=== PATIENT | male | born 1950 | race Caucasian/White ===

== ENCOUNTER 2016-06-15 00:29 | Emergency (ER) | payer MEDICARE, OTHER ==
[~2016-06-15] VITALS: Ht 182.9 cm; Wt 87.9 kg
--- NOTE | 2016-06-15 00:24 | ED.REPORT ---
HPI-Neurologic Deficit Date of Service Jun 15, 2016 ED Provider: The patient is a 65 year old male with history of rectal cancer (in remission), HTN, and DM who was brought to the ED via EMS after he was found vomiting with decreased LOC by his roommates (last known normal 0). EMS state that the patient complained of right sided weakness. The patient presents able to answer questions and follow commands but with slurred speech. The patient reports a headache but denies knowledge of what happened prior to his arrival at the hospital. Per roommate report the patient has active DVT. He takes daily Plavix. His code status is DNR/DNI. Nursing Notes Stated Complaint: CODE STROKE/R SIDED WEAKNESS Nursing Notes Reviewed: Yes Allergies: Coded Allergies: No Known Allergies (Unverified , 06/15/16) Scheduled Aspirin (Aspirin) 81 Mg Tablet 81 MG PO DAILY Atorvastatin Calcium (Atorvastatin Calcium) 40 Mg Tablet 40 MG PO HS Cephalexin (Cephalexin) 500 Mg Tablet 500 MG PO q8hrs Clopidogrel Bisulfate (Plavix) 75 Mg Tablet 75 MG PO DAILY Ferrous Sulfate (Ferrous Sulfate) 325 Mg Tablet 325 MG PO DAILY Gabapentin (Gabapentin) 300 Mg Capsule 300 MG PO TID Insulin Glargine,Hum.rec.anlog (Toujeo Solostar) 300 Unit/Ml (1.5 Ml) Insuln.pen 40 UNIT SQ QAM Lansoprazole DR (Prevacid) 30 Mg Capsule 15 MG PO DAILY Lisinopril (Lisinopril) 10 Mg Tablet 10 MG PO DAILY Metoprolol Tartrate (Metoprolol Tartrate) 25 Mg Tablet 12.5 MG PO BID Scheduled PRN Hydrocodone-Acetaminophen 5-325 mg (Hydrocodone-Acetaminophen 5-325 mg) 1 Each Tablet 1 TABLET PO Q6H PRN PRN For Pain Loperamide/Simethicone (Imodium Multi-Symptom Rel Cplt) 1 Each Tablet 1 EACH PO ASDIRECTED PRN PRN For Diarrhea or Loose Stool Sennosides (Senna Laxative) 25 Mg Tablet 25 MG PO ASDIRECTED PRN PRN For Constipation General Time Seen by Provider: 00:30 Chief Complaint Slurred speech, Other (Right sided weakness) Hx Obtained From: Patient, EMS Arrived By: Ambulance Sudden in Onset?: No (Unknown) Onset Occurred: Onset unknown Symptom Duration: Since onset Location: : Head Severity: Current: Mild Severity: Maximum: Mild Recent Healthcare: No recent hospitalization, Recent doctor visit Similar Sx Previous: No Risk Factors NIH Stroke Scale Level of Consciousness: Not alert, arousable (1) Ask Month & Age: Both questions right (0) Open/Close Eyes/Hand Pin Ball Machine Mechanic: Performs both tasks (0) Horizontal EO Movements: None (0) Visual Jamison: No visual loss (0) Facial Palsy: Minor paralysis (1) Right Arm Motor Drift (10s): Some effort v gravity (2) Left Arm Motor Drift (10s): Some effort v gravity (2) Right Leg Motor Drift (5s): Some effort v gravity (2) Left Leg Motor Drift (5s): Some effort v gravity (2) Limb Ataxia FNF/Heel-Parra: No ataxia (0) Sensation (Arms/Legs/Face): No sensory loss (0) Language Aphasia: No aphasia, normal (0) Dysarthria: Slurring intelligible (1) Extinction/Inattention: No exctinct/inattent (0) NIHSS Score: 10 Time NIHSS Performed: 00:47 Date NIHSS Performed: Jun 15, 2016 Past Medical History Past Medical History 1. 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 2. Diabetes mellitus type 2, which was apparently being managed with metformin in the past. 3. Chronic diabetic neuropathy. 4. Chronic dizziness and lightheadedness reportedly as residual from his stroke about six years ago. 5. Hiatal hernia. 6. GERD. Reports: Stroke Smoking History Never Smoker Social History Alcohol Use: "Social" Drug Use: Denies drug use Review of Systems Unable to Obtain ROS Patient condition Physical Exam Initial Vital Signs Vital Signs (First) Date Time Temp Pulse Resp B/P Pulse Ox O2 Delivery O2 Flow Rate FiO2 06/15/16 00:45 36.3 101 12 266/126 98 Room Air Initial VS: Reviewed ENT: Mucous membranes moist, Conjunctiva normal, No scleral icterus Neck: Supple, Non-tender, Full range of motion Back: No CVA tenderness Lymphatic: No lymphadenopathy Skin: Warm, Dry, No cyanosis Psychiatric: Mood/affect normal, Behavior normal, Normal thought content General/Constitutional: Awake, Alert GCS 14 Head / Eyes: Atraumatic, Normocephalic, PERRL Left-sided facial droop Respiratory / Chest: Atraumatic, Breath sounds NL, Breath sounds = bilat Cardiovascular: Heart rate NL, Regular rhythm, Heart sounds NL Neurologic: Oriented X4 Slurred speech GCS 14 Moves all four extremities, unable to move against gravity Left-sided facial droop Interpretation & Diagnostics Lab Results Interpretation Result Diagram: 06/15/162906/15/1629 Test 06/15/16 00:30 White Blood Count 20.1th/mm3 (3.8-10.1) Red Blood Count 4.70mil/mm3 (4.40-5.80) Hemoglobin 13.5g/dL (13.8-17.2) Hematocrit 38.7% (41.0-50.0) Mean Corpuscular Volume 82.3fL (81-100) Mean Corpuscular Hemoglobin 28.7pg (27.0-35.0) Mean Corpuscular Hemoglobin Concent 34.9% (32.0-37.0) Red Cell Distribution Width 13.1% (12.3-15.4) Platelet Count 362bil/L (150-400) Neutrophils (%) (Auto) 75.2% (40-74) Lymphocytes (%) (Auto) 13.6% (14-46) Monocytes (%) (Auto) 9.9% (4-12) Eosinophils (%) (Auto) 0.7% (0-5) Basophils (%) (Auto) 0.2% (0-3) Prothrombin Time 11.9sec (8.1-12.5) Prothromb Time International Ratio 1.11ratio Activated Partial Thromboplast Time 29.9sec (22.8-33.0) Sodium Level 135mEq/L (134-144) Potassium Level 3.6mEq/L (3.5-5.2) Chloride Level 93mEq/L (97-108) Carbon Dioxide Level 25mmol/L (18-29) Blood Urea Nitrogen 23mg/dL (8-27) Creatinine 1.03mg/dL (0.76-1.27) Estimat Glomerular Filtration Rate 77mL/min (>59) Glucose Level 234mg/dL (60-99) Calcium Level 9.2mg/dL (8.5-10.1) Total Bilirubin 0.7mg/dL (0.0-1.2) Aspartate Amino Transf (AST/SGOT) 20U/L (0-50) Alanine Aminotransferase (ALT/SGPT) 21U/L (0-44) Alkaline Phosphatase 125U/L (25-160) Troponin T 0.010ug/L (0.0-0.011) Total Protein 8.4g/dL (6.4-8.4) Albumin 4.3g/dL (3.4-5.0) ECG Interpretation ECG Interpretation: Normal sinus rhythm at rate 99 J point elevation v1 v2 unchanged from prior T wave inversion in AVR Time: 00:43 Interpreted by: ED physician CT Head Interpretation CONCLUSION: Large acute cerebellar hemorrhage on the right with parenchymal hematoma. Moderate underlying atrophy and periventricular white matter changes consistent with the patient's age. Study: Head CT no contrast Interpretation / Wet Read by: Interpret - Radiologist Re-Eval/Medical Decision Med Decision/Clinical Course 65-year-old male with past medical history of hypertension, diabetes, rectal cancer which is possibly in remission brought in by EMS for altered mental status. Patient was a stroke activation given his severe hypertension, facial drooping, slurred speech, and right-sided weakness. He was immediately sent to CT and found to have a large brain bleed. I immediately called [facility] for transfer. Dr. Echevarria, the stroke physician, has accepted the patient. I have also initiated nicardipene with goal systolic blood pressure less than 160. Patient is oriented 4 at this time, and is adamant that he does not want to be intubated. While he has a brain bleed, I do feel that he is of decision-making capacity at this time. I am respecting his wish not to be intubated. I feel that he is also protecting his airway at this time, and answering questions appropriately. Source of Hx: Old records Re-Evaluation/Progress : Time of Eval: 12:40 Re-Evaluation/Progress Note: The patient is awake and oriented x4. He has states twice in front of multiple ER staff that he does not wish to be intubated or ressucitated. Consultation : Call Returned at: 00:53 Note: Spoke with Dr. Echevarria, Stroke neurologist at [facility], who accepts the transfer. Counseled Regarding: Diagnosis, Need for transfer, Other (Imaging) Discharge & Departure Impression: Primary Impression: Intracranial hemorrhage Additional Impressions: Vomiting Vomiting type: unspecified Vomiting Intractability: intractable Nausea presence: with nausea Qualified Code: R11.2 - Nausea with vomiting, unspecified Decreased level of consciousness Disposition: Transfer, Acute Care Facility Transfer Requested at: 00:48 Receiving Hospital: [facility] Transfer Accepted: Yes Transfer Accepted at: 00:58 Transfer Reason: Higher level of care Spoke with: Attending physician (Neurology, Dr. Echevarria) Patient Status: Stable, Stable for transfer Patient Informed: Yes Discharge Condition All VS Reviewed: Yes Condition: Stable Referrals: Allen Weinstein MD (PCP) Crit Care Except Billable Proc Time Spent: 30-74 minutes Services Performed: Patient management by me, Time spent at bedside, Reviewing imaging, Discussing patient care, Documentation in record Scribe Attestation Portions of this note were transcribed by Jamison Gaston. I, Dr. Jensen, personally performed the history, physical exam, and medical decision-making; I reviewed and confirmed the accuracy of the information in the transcribed note. Signed by: Keyona Torrez, [Date] and [Time]. copies to: Allen Weinstein MD, Rebecca A MD Jun 15, 2016 00:24 JAMISON GASTON Jun 15, 2016 00:56
[~2016-06-15 00:29] MED LIST: ASPI-973 PO; ATOR40TA69 PO; CEPH500T PO; CLOP75TA3 PO; FERR-83 PO; GABA-502 PO; HYDR-4003 PO; INSU300I SQ; LANS30CA14 G-TUBE; LISI10TA PO; LOPE1TAB13 PO; METO25TA6 PO; Ondansetron 2 mg/mL 2 mL Inj ONE; SENN25TA8 PO
[2016-06-15 00:40] LABS: BASOPHILS % (AUTO) 0.2 % (0-3); EOSINOPHILS % (AUTO) 0.7 % (0-5); MONOCYTES % (AUTO) 9.9 % (4-12); Mean Corpuscular Hemoglobin 28.7 pg (27.0-35.0); Mean Corpuscular Volume 82.3 fL (81-100); NEUTROPHILS % (AUTO) 75.2 % (40-74); Platelet Count 362 bil/L (150-400)
[2016-06-15 00:45] VITALS: BP 266/126; PULSE 101; RESP 12; O2SAT 98
[2016-06-15] MEDS ORDERED: NiCARdipine Inj 25 MG in Dextrose 5% 240 ML IV SCH (00:50)
[2016-06-15] MEDS ORDERED: HYDROmorphone 1 mg/mL Inj IVPUSH ONE (00:50)
[2016-06-15 01:01] LABS: INR 1.11 ratio
[2016-06-15 01:08] LABS: TROPONIN T 0.01 ug/L (0.0-0.011)
[2016-06-15 01:54] VITALS: BP 193/94; PULSE 101; RESP 18; O2SAT 95
--- NOTE | 2016-06-15 09:44 | DRSVH ---
PROCEDURE: CT BRAIN (TPA) ([id number]) INDICATIONS: Stroke TECHNIQUE: Noncontrast 4.5 mm thick angled axial sections acquired from the foramen magnum to the vertex, with c oronal reformats. COMPARISON: [facility], CT, CT ANGIO BRAIN AND NECK, 07/12/2015, 16:28. FINDINGS: Image quality: Excellent. Brain: There is a 3.6 x 5.9 x 5.3 cm interparenchymal hematoma with an acute appearance in the right cerebellar hemisphere. There is sulcal effacement and associated mass effect on the posterior right a spect of the dar additionally, the brainstem is slightly displaced to the left secondary to leftward shift of the right cerebellar tonsil. A 3 mm in diameter hyperdense focus is present within the righ t insular cortex which is new when compared with the study dated 07/12/15 (series 2, image 14). No oth er findings to suggest acute intracranial hemorrhage. There is extensive volume loss and deep and per iventricular white matter changes likely associated with microvascular ischemia. There is no subfalci ne herniation or supratentorial midline shift. Skull and face: Calvarium and visualized facial bones appear intact, without suspicious lesions. Sinuses: Visualized sinuses and mastoids are clear. IMPRESSION: 1. Large, acute right cerebellar hemisphere intraparenchymal clot with associated mass effect includi ng early right tonsillar herniation, leftward shift of the midbrain, and mass effect on the posterior right aspect of the dar. This finding is concordant with the overnight interpretation. And was relayed to Dr. Jensen by the over night radiologist at 12:45 AM on 06/15/16. 2. Findings suspicious for punctate intraparenchymal hemorrhage in the right insular cortex. This finding was not described on the overnight interpretation. 3. Extensive findings likely associated with microvascular ischemia. This study fulfills neurological imaging criteria for inclusion or exclusion of acute stroke therapie s based on available published neurological guidelines. Dictated by: Lisa Melendez M.D. on 06/15/2016 at 9:36 Approved by: Lisa Melendez M.D. on 06/15/2016 at 9:43
== END 2016-06-15 01:55 | disposition short-term general hospital (02) ==
LOC: SED 00:29
DX: I62.9 Nontraumatic intracranial hemorrhage, unspecified (principal); R11.2 Nausea with vomiting, unspecified; R41.82 Altered mental status, unspecified; R53.1 Weakness; R40.2410 Glasgow coma scale score 13-15, unspecified time; I10 Essential (primary) hypertension; E11.40 Type 2 diabetes mellitus with diabetic neuropathy, unspecified; I69.398 Other sequelae of cerebral infarction; K21.9 Gastro-esophageal reflux disease without esophagitis; I82.409 Acute embolism and thrombosis of unspecified deep veins of unspecified lower extremity; Z85.040 Personal history of malignant carcinoid tumor of rectum; Z79.82 Long term (current) use of aspirin; Z79.4 Long term (current) use of insulin; Z79.02 Long term (current) use of antithrombotics/antiplatelets
CPT/HCPCS: 36415; 70450; 80053; 84484; 85025; 85610; 85730; 93005; 94799; 96374; 96375; 99291; J2405

== ENCOUNTER 2016-08-01 15:22 | Observation (INO) | payer MEDICARE, OTHER ==
[2016-08-01] VITALS (7 sets, daily range): BP systolic 114–149; BP diastolic 64–79; PULSE 84–96; RESP 14–23; O2SAT 95–100
[~2016-08-01] VITALS: Ht 182.9 cm; Wt 76.4 kg
[~2016-08-01 15:22] MED LIST changes: -Ondansetron 2 mg/mL 2 mL Inj ONE
[2016-08-01 15:53] LABS: BASOPHILS % (AUTO) 0.6 % (0-3); EOSINOPHILS % (AUTO) 2.9 % (0-5); MONOCYTES % (AUTO) 10.7 % (4-12); Mean Corpuscular Hemoglobin 28.2 pg (27.0-35.0); Mean Corpuscular Volume 84.9 fL (81-100); NEUTROPHILS % (AUTO) 62.2 % (40-74); Platelet Count 346 bil/L (150-400)
[2016-08-01 16:13] LABS: INR 1.18 ratio
[2016-08-01 16:18] LABS: APPEARANCE,URINE CLEAR (CLEAR,HAZY); COLOR,URINE YELLOW (YELLOW); OCCULT BLOOD,URINE LARGE (NEGATIVE)
--- NOTE | 2016-08-01 16:47 | ED.REPORT ---
HPI-GI Bleed Date of Service Aug 01, 2016 ED Provider: Avinash Mera MD A 65 year old male with history of rectal cancer (in remission), PVD, embolic stroke, hypertension, type II diabetes mellitus and neuropathy presents to the ED via EMS from [facility] ([facility]) complaining of bloody stool that first appeared this morning. Associated symptoms include hematuria and LLQ abdominal pain. Patient was seen in the ED on 06/15 for decreased LOC and head CT revealed an right cerebellar hemorrhage. He was sent to [facility] in stable condition. Once discharged form [facility], patient was sent to live at [facility] in [place]. He denies any current fever or vomiting. Last known rectal malignancy was 02/09/2016. Nursing Notes Stated Complaint: POSS GI BLEED Chief Complaint: General Complaint Nursing Notes Reviewed: Yes Allergies: Coded Allergies: No Known Allergies (Unverified , 08/01/16) Scheduled Amlodipine (Amlodipine) 10 Mg Tablet 10 MG G-TUBE DAILY Ammonium Lactate (Ammonium Lactate) 140 Gm Cream..g. 1 APPLIC EXT BID Ascorbate Calcium (Vitamin C) 500 Mg Tablet 500 MG PO DAILY Atorvastatin Calcium (Atorvastatin Calcium) 40 Mg Tablet 40 MG PO HS Carvedilol (Carvedilol) 25 Mg Tablet 25 MG G-TUBE BID Chlorthalidone (Chlorthalidone) 25 Mg Tablet 12.5 MG G-TUBE DAILY Clopidogrel Bisulfate (Plavix) 75 Mg Tablet 75 MG PO DAILY Doxazosin (Cardura) 4 Mg Tablet 4 MG G-TUBE HS Ferrous Sulfate (Ferrous Sulfate) 325 Mg Tablet 325 MG PO DAILY Gabapentin Oral Soln (Gabapentin Oral Soln) 250 Mg/5 Ml Solution 300 MG G-TUBE TID Insulin Glargine (Lantus U100 Insulin Vial) 100 Unit/Ml Vial 24 UNITS SUBQ HS Insulin Lispro (HumaLOG U100 Insulin Pen) 100 Unit/1 Ml Insuln.pen 9 UNIT SUBQ ACHS Blood Sugar Lispro Correction <151 0 units 151-175 1 unit 176-200 2 units 201-225 3 units 226-250 4 units 251-275 5 units 276-300 6 units 301-325 7 units 326-350 8 units 351-375 9 units 376-400 10 units >400 12 units Check blood sugars before meals and at bedtime. Use correction factor only before meals. Insulin Lispro (HumaLOG U100 Insulin Pen) 100 Unit/1 Ml Insuln.pen 0-6 UNIT SUBQ ACHS Blood Sugar Lispro Correction <151 0 units 151-175 1 unit 176-200 2 units 201-225 3 units 226-250 4 units 251-275 5 units 276-300 6 units 301-325 7 units 326-350 8 units 351-375 9 units 376-400 10 units >400 12 units Check blood sugars before meals and at bedtime. Use correction factor only before meals. Lactose-Free Food/Fiber (Jevity 1.5 Oscar Liquid) 1,000 Ml Liquid 80 ML PO DIRECTED Lansoprazole DR (Prevacid) 30 Mg Capsule 15 MG G-TUBE DAILY Lisinopril (Lisinopril) 20 Mg Tablet 20 MG G-TUBE BID Multivitamin with Minerals (Totalday Multiple) 1 Each Tablet.er 1 TAB G-TUBE DAILY Nystatin (Nystatin) 100,000 Unit/1 Ml Oral.susp 500,000 UNIT PO Q6H Sodium Chloride 0.9% (Sodium Chloride) 50 Ml Iv.soln 200 ML G-TUBE Q6H Tamsulosin (Flomax) 0.4 Mg Capsule 0.4 MG PO DAILY Water Bacteriostatic (Water) 30 Ml Vial 200 ML G-TUBE QID Scheduled PRN Acetaminophen (Acetaminophen) 325 Mg Tablet 650 MG G-TUBE Q6H PRN PRN For Pain Albuterol Neb Soln (Albuterol Neb Soln) 2.5 Mg/3 Ml Vial.neb 2.5 MG INHALATION Q2H PRN PRN For Shortness of Breath Bisacodyl (Dulcolax Rectal) 10 Mg Supp.rect 10 MG RC DAILY PRN PRN For Constipation Loperamide Liquid (Loperamide Liquid) 1 Mg/5 Ml Liquid 2 MG G-TUBE Q6H PRN PRN For Diarrhea or Loose Stool Magnesium Hydroxide (Milk of Magnesia) 400 Mg/5 Ml Oral.susp 30 ML PO DIRECTED PRN PRN For Constipation Meclizine (Bonine) 25 Mg Tab.chew 25 MG PO TID PRN PRN For Dizziness Na Phos,M-B/Na Phos,Di-Ba (Fleet Enema) 133 Ml Enema 133 ML RC DIRECTED PRN PRN For Constipation Ondansetron ODT (Ondansetron ODT) 4 Mg Tab.rapdis 4-8 MG G-TUBE TID PRN PRN For Nausea Oxycodone (Roxicodone) 5 Mg Tablet 5-10 MG G-TUBE Q3H PRN PRN For Pain Sennosides (Senna) 8.8 Mg/5 Ml Syrup 17.6 MG G-TUBE BID PRN PRN For Constipation General Time Seen by Provider: 16:42 Transferred From: long-term Chief Complaint Chief Complaint: Other (Blood in Stool ) Hx Obtained From: Patient Arrived By: Ambulance Onset Occurred: 1 - 4 hours ago Symptom Duration: Since onset Progression Since Onset: Unchanged Location: : LLQ Quality: Painful Radiation: : Does not radiate Severity: Current: Mild Severity: Maximum: Moderate Associated with: Reports: Abdominal pain, Hematuria, Denies: Fever Pertinent Negative: Pt denies other symptoms Recent Healthcare: Recent doctor visit, Recent hospitalization Past Medical History Past Medical History Notes: DNR - Limited intervention PCP: Dr. Lebron Weinstein Past Medical History 1. Intracranial right cerebral hemorrhage (06/16/2016) 2. History of embolic stroke (6 years ago) 3. Diabetes mellitus type 2, which was apparently being managed with metformin in the past. 4. Chronic diabetic neuropathy 5. Hypertension 6. TIA 7. Peripheral vascular disease 8. Chronic dizziness and lightheadedness reportedly as residual from his stroke about six years ago. 9. Hiatal hernia. 10. GERD. Reports: Stroke Past Surgical History G-tube placement Oro catheter Smoking History Never Smoker Social History Pt currently lives at [facility] in [place] Alcohol Use: "Social" Drug Use: Denies drug use Other Social History: Good social support, Lives in long term, Local resident Review of Systems No anticoagulation Constitutional: Denies: Chills, Fever GI: Reports: Abdominal pain (LLQ), Bloody/tarry stool, Hematochezia, Denies: Nausea, Vomiting Neurologic: Denies: Change LOC Complete sys rev & neg: except as marked. Male: Reports Hematuria Physical Exam Initial Vital Signs Vital Signs (First) Date Time Temp Pulse Resp B/P Pulse Ox O2 Delivery O2 Flow Rate FiO2 08/01/16 15:31 36.8 96 23 127/67 96 Room Air Initial VS: Reviewed Head / Eyes: Atraumatic, Normocephalic, PERRL Extremities: Vascular intact, Neuro intact, No swelling, No tenderness Skin: Warm, Dry, No cyanosis Psychiatric: Mood/affect normal, Behavior normal, Normal thought content General/Constitutional: Awake, Alert, No acute distress Respiratory / Chest: Atraumatic, No respiratory distress Abdomen: Atraumatic, Soft, No guarding, No rebound Tenderness/Guarding/Rebound: Positive: Tender LLQ... ABDOMEN: J-tube in place Rectum / Perineum: Atraumatic Rectal for Blood: Positive: Maroon stool (Small amt of clotted blood present ) RECTUM: Firm stool present (dark) Interpretation & Diagnostics Lab Results Interpretation Result Diagram: 08/01/16 1548 08/01/16 1548 Test 08/01/16 15:48 08/01/16 15:51 White Blood Count 8.4th/mm3 (3.8-10.1) Red Blood Count 3.58mil/mm3 (4.40-5.80) Hemoglobin 10.1g/dL (13.8-17.2) Hematocrit 30.4% (41.0-50.0) Mean Corpuscular Volume 84.9fL (81-100) Mean Corpuscular Hemoglobin 28.2pg (27.0-35.0) Mean Corpuscular Hemoglobin Concent 33.2% (32.0-37.0) Red Cell Distribution Width 14.9% (12.3-15.4) Platelet Count 346bil/L (150-400) Neutrophils (%) (Auto) 62.2% (40-74) Lymphocytes (%) (Auto) 20.9% (14-46) Monocytes (%) (Auto) 10.7% (4-12) Eosinophils (%) (Auto) 2.9% (0-5) Basophils (%) (Auto) 0.6% (0-3) Prothrombin Time 12.7sec (8.1-12.5) Prothromb Time International Ratio 1.18ratio Sodium Level 134mEq/L (134-144) Potassium Level 4.1mEq/L (3.5-5.2) Chloride Level 93mEq/L (97-108) Carbon Dioxide Level 26mmol/L (18-29) Blood Urea Nitrogen 35mg/dL (8-27) Creatinine 0.76mg/dL (0.76-1.27) Estimat Glomerular Filtration Rate 109mL/min (>59) Glucose Level 165mg/dL (60-99) Calcium Level 9.2mg/dL (8.5-10.1) Total Bilirubin 0.4mg/dL (0.0-1.2) Aspartate Amino Transf (AST/SGOT) 43U/L (0-50) Alanine Aminotransferase (ALT/SGPT) 81U/L (0-44) Alkaline Phosphatase 140U/L (25-160) Troponin T 0.042ug/L (0.0-0.011) Total Protein 6.8g/dL (6.4-8.4) Albumin 3.0g/dL (3.4-5.0) Urine Color Yellow (YELLOW) Urine Appearance Clear (CLEAR,HAZY) Urine pH 8.0 (5.0-8.0) Urine Specific [place]ham 1.010 (1.003-1.035) Urine Protein Tracemg/dL (NEG,TRACE) Urine Glucose (UA) 500mg/dL (NEGATIVE) Urine Ketones Negativemg/dL (NEGATIVE) Urine Occult Blood Large (NEGATIVE) Urine Nitrite Negative (NEGATIVE) Urine Bilirubin Negative (NEGATIVE) Urine Urobilinogen 4.0mg/dL (NORMAL) Urine Leukocyte Esterase Negative (NEGATIVE) Urine RBC 11-50/hpf (0-2) Urine WBC 0-5/hpf (0-5) Urine Epithelial Cells None/hpf (NONE-MOD) Urine Crystals None seen (NONE SEEN) Urine Bacteria None/hpf (NONE-FEW) Urine Hyaline Casts None/lpf (NONE) Urine Granular Casts None seen (NONE SEEN) Urine Waxy Casts None seen (NONE SEEN) Urine Red Blood Cell Casts None seen (NONE SEEN) Urine White Blood Cell Casts None seen (NONE SEEN) Urine Mucus None seen (None Seen) Urine Trichomonas None seen (NONE SEEN) Urine Yeast None (NONE SEEN) Urinalysis Comment None Urine Culture Reflexed Not indicated Lab Results Interpretation: LABS (06/15/16) Hgb = 13.5 Hct = 38.5 ECG Interpretation ECG Interpretation: Sinus Rhythm Rate 85 bpm Left ventricular hypertrophy [place] ST elevation, lateral leads Normal P axis Time: 16:58 Interpreted by: ED physician Normal ECG Interpretation: No change from prior ECGs (06/15/16) CT Abd / Pelvis Interpretation IMPRESSION: 1. New medial segment left hepatic lobe metastasis. 2. No change in calcified splenic hilar focus, possibly indicating a healed metastasis versus splenic artery aneurysm. 3. No change in mild right lung base pneumonia. Dictated by: Stew Adrian M.D. on 08/01/2016 at 17:24 Study type: Abdominal CT IV contrast Interpretation / Wet Read by: Interpret - Radiologist Re-Eval/Medical Decision Med Decision/Clinical Course Lower GI bleeding with reassuring VS. Does not appear to have ongoing significant blood loss. Unexpected elevation of troponin, this is a change from a recent baseline. Also significant decrease in hemoblobin since Jun. Plan to admit to trend these. Given co-morbidities, do not think he is a candidate for a cardiac intervention. Re-Evaluation/Progress : Time of Eval: 18:12 Patient Status: Condition improved Re-Evaluation/Progress Note: Patient is rechecked. He is informed of his concerning lab results and the plan to admit. Code status is discussed. Patient would still like to be DNR with limited intervention. Consultation : Referral / Consult Name: Catalino Gasca MD Consulted With: Hospitalist Call Returned at: 18:25 Digital Media Representative: Will see patient, Agrees with eval, Agrees with plan, Accepts admit Counseled Regarding: Diagnosis, Lab results, Need for admission Discharge & Departure Impression: Primary Impression: Lower GI bleed Additional Impression: Elevated troponin Disposition: ADMITTED TO HOSPITAL Discharge Condition All VS Reviewed: Yes Condition: Stable Referrals: Allen Weinstein MD (PCP) Elsa Easley MD Attestation Portions of this note were transcribed by Keith Sanchez. I, Dr. Mera personally performed the history, physical exam and medical decision-making; I reviewed and confirmed the accuracy of the information in the transcribed note. Signed by: Keyona Santoro, 08/01/16 4207. copies to: Allen Weinstein MD; Elsa Easley MD, Donald L MD Aug 01, 2016 16:47 KEITH SANCHEZ Aug 01, 2016 16:54
--- NOTE | 2016-08-01 17:28 | DRSVH ---
PROCEDURE: CT ABDOMEN AND PELVIS WITH CONTRAST ([id number]) INDICATIONS: llq abd pain/tender, rectal bleeding, history of colon carcinoma TECHNIQUE: After the administration of intravenous contrast, 5 mm thick sections acquired from the diaphragm to the symphysis. 5 mm coronal and sagittal reformats were acquired. For radiation dose reduction, the following was used: automated exposure control, adjustment of mA and/or kV according to patient siz e. COMPARISON: [facility], CT, CT CHEST ABD PELVIS W CON, 08/30/2015, 10:46. [facility], CT, CT ABD PELVIS W CON, 04/26/2015, 16:59. [facility], CT, CT ABDOMEN PELVIS WO CONTRAST, 07/26/2016, 6:52 PM. FINDINGS: Image quality: Excellent. ABDOMEN: Lung bases: No change in mild airspace opacity within the right posterior lung base. Heart size is no rmal. Solid organs: Liver and spleen are normal in size. There is a 26 mm diameter low-density focus withi n the medial segment left hepatic lobe inferiorly, new since the prior examination. There is a 13 mm diameter calcified focus at the splenic hilum, as before. Gallbladder is within normal limits. Bilia ry system is non dilated. Pancreas enhances normally. No adrenal nodules. Kidneys demonstrate norm al size and enhancement, without hydronephrosis. Peritoneum and bowel: Percutaneous gastrostomy is present. Bowel loops demonstrate normal wall thick ness and caliber. No free fluid or air. Nodes and vessels: No retroperitoneal or mesenteric adenopathy by size criteria. Aorta and inferior vena cava are normal in size. Miscellaneous: No ventral hernias. PELVIS: Genitourinary: Oro catheter is present, and the urinary bladder is decompressed. Miscellaneous: No inguinal hernias or adenopathy. Bones: No suspicious bony lesions. No vertebral body compression fractures. IMPRESSION: 1. New medial segment left hepatic lobe metastasis. 2. No change in calcified splenic hilar focus, possibly indicating a healed metastasis versus splenic artery aneurysm. 3. No change in mild right lung base pneumonia. Dictated by: Stew Adrian M.D. on 08/01/2016 at 17:24 Approved by: Stew Adrian M.D. on 08/01/2016 at 17:26
[2016-08-01] MEDS ORDERED: Polyethylene Glycol (PEG) 17 Gm Powder PO PRN (18:30)
[2016-08-01] MEDS ORDERED: Alum-Mag Hydrox-Simeth 30 mL Suspension PO PRN (18:30)
[2016-08-01] MEDS ORDERED: Ondansetron 2 mg/mL 2 mL Inj IVPUSH PRN (18:30)
[2016-08-01] MEDS ORDERED: GABA250S2 G-TUBE (19:13)
[2016-08-01] MEDS ORDERED: INSU100V7 SUBQ (19:13)
[2016-08-01] MEDS ORDERED: OXYC-474 G-TUBE (19:13)
[2016-08-01] MEDS ORDERED: ACET325T51 G-TUBE (19:17)
[2016-08-01] MEDS ORDERED: SENN8.8S8 G-TUBE (19:17)
[2016-08-01] MEDS ORDERED: HYG25 G-TUBE (19:17)
[2016-08-01] MEDS ORDERED: AMLO10TA3 G-TUBE (19:17)
[2016-08-01] MEDS ORDERED: ALBU2.5V4 INHALATION (19:17)
[2016-08-01] MEDS ORDERED: LISI-567 G-TUBE (19:17)
[2016-08-01] MEDS ORDERED: [UNRECOGNIZED DRUG - CODE] G-TUBE (19:18)
[2016-08-01] MEDS ORDERED: DOXA4TAB2 G-TUBE (19:18)
[2016-08-01] MEDS ORDERED: NYST1000 PO (19:23)
[2016-08-01] MEDS ORDERED: INSU100I18 SUBQ ×2 (19:23→19:29)
[2016-08-01] MEDS ORDERED: ONDA4TAB12 G-TUBE (19:23)
[2016-08-01] MEDS ORDERED: LOPE1LIQ80 G-TUBE (19:23)
[2016-08-01] MEDS ORDERED: CARV25TA2 G-TUBE (19:23)
[2016-08-01] MEDS ORDERED: BISA10SU61 RC (19:29)
[2016-08-01] MEDS ORDERED: MAGN400O4 PO (19:29)
[2016-08-01] MEDS ORDERED: AMMO385C5 EXT (19:29)
[2016-08-01] MEDS ORDERED: NA P133E23 RC (19:29)
[2016-08-01] MEDS ORDERED: MECL-114 PO (19:35)
[2016-08-01] MEDS ORDERED: LACT-75 PO (19:35)
[2016-08-01] MEDS ORDERED: [UNRECOGNIZED DRUG - CODE] G-TUBE (19:35)
[2016-08-01] MEDS ORDERED: MULT-620 G-TUBE (19:35)
[2016-08-01] MEDS ORDERED: TAMS0.4C98 PO (19:35)
[2016-08-01] MEDS ORDERED: ASCO-294 PO (19:35)
[2016-08-01] MEDS: 0.9% Sodium Chloride 1,000 ML IV SCH (20:22)
[2016-08-01] MEDS ORDERED: Pantoprazole 40 mg ER24 Tablet PO SCH (20:30)
--- NOTE | 2016-08-01 21:52 | PCM.HPMED ---
Subjective Date of Service Aug 01, 2016 Primary Provider: Admitting Physician: Primary Care Physician: Allen Weinstein MD Attending Physician: Admit Status: From the Emergency Department, 23-Hour Observation, Remote Telemetry Chief Complaint: Hematochezia History of Present Illness: Javier Joseph is a 65 year old male with history of rectal cancer (in remission), Atherosclerosis disease with Peripheral vascular disease and TIA, type II diabetes mellitus and hypertension presents to [facility] emergency department via EMS from [facility] ([facility]) complaining of Blood in his stool 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 Associated symptoms include hematuria and left sided abdominal pain. He denies any vomiting or fever. Due to patient being a poor historian it is unclear if he had any melena or hematemesis. Unclear if patient took any NSAID Patient was seen at [facility] on 06/15 for decreased LOC and CT revealed an intracranial hemorrhage. He was sent to [facility] in stable condition. Patient was sent to live at [facility] in [place] after being discharged from [facility]. History of rectal cancer with metastasis Case discussed with Dr Mera, no active signs of bleeding with stable Hgb. Elevated troponin, no EKG changes or chest pain. Request to admit to trend troponin and monitor for possible GI bleeding Review of Systems: Poor historian, answering no to every question Allergies Coded Allergies: No Known Allergies (Unverified , 08/01/16) Home Medications From Javier Mancia [id number] 05/29/2016 09:20 AM 05/09 aspirin 81 mg tablet,delayed release take 1 tablet by oral route every day atorvastatin 40 mg tablet TAKE 1 TABLET BY ORAL ROUTE EVERY DAY gabapentin 300 mg capsule take 1 capsule by oral route 3 times every day hydrocodone 5 mg-acetaminophen 325 mg tablet take 1 tablet by oral route every 6 hours as needed for pain 06/03/2016 Iron (ferrous sulfate) 325 mg (65 mg iron) tablet take 1 capsule po daily lancets Use for blood glucose readings daily lisinopril 10 mg tablet take 1 tablet by oral route every day metoprolol tartrate 25 mg tablet take 1/2 tablet by oral route 2 times every day for high blood pressure. 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 Surgical History s/p Craniotomy Family History Mother, at 84yo from COPD Father, alive and well at 89yo Social History Hx Alcohol Use: Yes (A COUPLE BEER A WEEK) Hx Substance Use: No Hx Tobacco Use: No Smoking Status: Never Smoker Living Arrangement: Senior Living Facility ([facility]) Exam Vital Signs Vital Sign - Last Date Time Temp Pulse Resp B/P Pulse Ox O2 Delivery O2 Flow Rate FiO2 08/01/16 18:16 86 14 132/69 100 Room Air 08/01/16 15:31 36.8 Exam General: Alert, Oriented X3, Cooperative, No acute Distress Eyes: PERRLA, Scleral Anicteric Mouth: Mouth Normal, Mucous Membranes Moist/[place] Neck: Supple, no Thyromegaly, trachea central. Chest & Lungs: Clear to auscultation & percussion, No adventitious breath sounds, no crackles, no wheeze Cardiovascular: Normal S1, Normal S2, No Murmurs/Rubs/Gallops, Regular Rate/ Rhythm, (No JVD, no peripheral edema) Pulses: Radial (present and equal), Dorsalis Pedi (present and equal) Abdomen: Soft, Non-tender, Non-distended, Normoactive bowel tones. Musculoskeletal: Unremarkable. Normal range of motion, no swollen or erythematous joints Extremities: No edema, no cyanosis, no clubbing. Skin: No rashes. Warm and dry, no erythematous areas Neurological: Grossly neurologically intact, has generalized weakness, Normal Speech, Sensation Intact Lymphatic: Lymph nodes Cervical and Axillary not palpable. Lab and Diagnostics Labs Laboratory Tests Test 08/01/16 15:48 08/01/16 15:51 White Blood Count 8.4th/mm3 (3.8-10.1) Red Blood Count 3.58mil/mm3 (4.40-5.80) Hemoglobin 10.1g/dL (13.8-17.2) Hematocrit 30.4% (41.0-50.0) Mean Corpuscular Volume 84.9fL (81-100) Mean Corpuscular Hemoglobin 28.2pg (27.0-35.0) Mean Corpuscular Hemoglobin Concent 33.2% (32.0-37.0) Red Cell Distribution Width 14.9% (12.3-15.4) Platelet Count 346bil/L (150-400) Neutrophils (%) (Auto) 62.2% (40-74) Lymphocytes (%) (Auto) 20.9% (14-46) Monocytes (%) (Auto) 10.7% (4-12) Eosinophils (%) (Auto) 2.9% (0-5) Basophils (%) (Auto) 0.6% (0-3) Prothrombin Time 12.7sec (8.1-12.5) Prothromb Time International Ratio 1.18ratio Sodium Level 134mEq/L (134-144) Potassium Level 4.1mEq/L (3.5-5.2) Chloride Level 93mEq/L (97-108) Carbon Dioxide Level 26mmol/L (18-29) Blood Urea Nitrogen 35mg/dL (8-27) Creatinine 0.76mg/dL (0.76-1.27) Estimat Glomerular Filtration Rate 109mL/min (>59) Glucose Level 165mg/dL (60-99) Calcium Level 9.2mg/dL (8.5-10.1) Total Bilirubin 0.4mg/dL (0.0-1.2) Aspartate Amino Transf (AST/SGOT) 43U/L (0-50) Alanine Aminotransferase (ALT/SGPT) 81U/L (0-44) Alkaline Phosphatase 140U/L (25-160) Troponin T 0.042ug/L (0.0-0.011) Total Protein 6.8g/dL (6.4-8.4) Albumin 3.0g/dL (3.4-5.0) Urine Color Yellow (YELLOW) Urine Appearance Clear (CLEAR,HAZY) Urine pH 8.0 (5.0-8.0) Urine Specific [place] 1.010 (1.003-1.035) Urine Protein Tracemg/dL (NEG,TRACE) Urine Glucose (UA) 500mg/dL (NEGATIVE) Urine Ketones Negativemg/dL (NEGATIVE) Urine Occult Blood Large (NEGATIVE) Urine Nitrite Negative (NEGATIVE) Urine Bilirubin Negative (NEGATIVE) Urine Urobilinogen 4.0mg/dL (NORMAL) Urine Leukocyte Esterase Negative (NEGATIVE) Urine RBC 11-50/hpf (0-2) Urine WBC 0-5/hpf (0-5) Urine Epithelial Cells None/hpf (NONE-MOD) Urine Crystals None seen (NONE SEEN) Urine Bacteria None/hpf (NONE-FEW) Urine Hyaline Casts None/lpf (NONE) Urine Granular Casts None seen (NONE SEEN) Urine Waxy Casts None seen (NONE SEEN) Urine Red Blood Cell Casts None seen (NONE SEEN) Urine White Blood Cell Casts None seen (NONE SEEN) Urine Mucus None seen (None Seen) Urine Trichomonas None seen (NONE SEEN) Urine Yeast None (NONE SEEN) Urinalysis Comment None Urine Culture Reflexed Not indicated Result Diagram: 08/01/16 1548 08/01/16 1548 X-Rays, CTs and MRIs CT ABDOMEN AND PELVIS WITH CONTRAST 08/01 IMPRESSION: 1. New medial segment left hepatic lobe metastasis. 2. No change in calcified splenic hilar focus, possibly indicating a healed metastasis versus splenic artery aneurysm. 3. No change in mild right lung base pneumonia. Dictated by: Stew Adrian M.D. on 08/01/2016 at 17:24 Approved by: Stew Adrian M.D. on 08/01/2016 at 17:26 Assessment & Plan Javier Joseph is a 65 year old male with history of rectal cancer (in remission), Atherosclerosis disease with Peripheral vascular disease and TIA, type II diabetes mellitus and hypertension presents to [facility] emergency department via EMS from [facility] ([facility]) complaining of hematochezia 1. Acute Elevated troponin. Present on admission No EKG changes or anginal complaints at this time. Likely represent demand ischemia rather than Non ST elevation [place] - trending troponin overnight - consider a Cardiology consult tomorrow if levels continue to rise - No anticoagulations at this time due to suspected bleeding 2. Possible GI bleeding. Present on admission No obvious active bleeding at this time, Previous history if GERD. Etiology could be Wendy Ospina syndrome or Peptic ulcer disease - Protonix 40 mg daily - given Stroke risk and Myocardial infarction risk I will continue antiplatelet therapy for now - consider Gastroenterology consult if bleeding persists - recommend endoscopy as outpatient 3 Hypertension Presumed stable - continuing Metoprolol and Lisinopril via G tube 4 Type 2 diabetes - Continue home dose Lantus (dose unclear) - Low dose correctional insulin Lispro 5 Rectal cancer with metastasis Imaging showed no change in splenic and hepatic metastasis -Followed by Dr. Esteban outpatient 6 Chronic indwelling catheter with hematuria No evidence of urinary tract infection - continue catheter care with frequent changes 7 Malnutrition on tube feeding - holding tube feeding until bleeding is ruled out 8 Multiple Skin Ulcers. Present on admission Patient bed bound - wound care consulted - Acetaminophen as needed for mild pain/fever/headache - Bowel regimen as needed - Antiemetic as needed Patient admitted under inpatient status with expected length of stay > 2 midnights for severity of present symptoms, complexities of treatment plan and risk for adverse event . Resuscitation Status: DNR/DNI:Do Not Resuscitate/Intubate Catalino Gasca MD Aug 01, 2016 18:33
[2016-08-01] MEDS: Pantoprazole 4 mg/mL 10 mL Inj IVPUSH SCH (22:00)
[2016-08-02] VITALS (8 sets, daily range): BP systolic 133–159; BP diastolic 78–89; PULSE 67–97; RESP 18–20; O2SAT 95–97
[2016-08-02] MEDS: 0.9% Sodium Chloride 1,000 ML IV SCH ×2 (04:40→14:59)
[2016-08-02] MEDS: Nystatin 100,000 Unit/mL 5 mL Suspension PO SCH ×4 (05:10→23:10)
[2016-08-02] MEDS ORDERED: Loperamide 1 mg/5 mL 120 mL Liquid G-TUBE PRN (05:10)
[2016-08-02] MEDS ORDERED: SODIUM CHLORIDE IV SCH (05:10)
[2016-08-02] MEDS ORDERED: Albuterol 2.5 mg/3 mL Inhalation Solution NEB PRN (05:18)
[2016-08-02] MEDS ORDERED: WATER FOR INJECTION INJ SCH (06:30)
[2016-08-02] MEDS ORDERED: Acetaminophen 32.5 mg/mL 20 mL Liquid PO PRN (08:16)
[2016-08-02] MEDS ORDERED: Lansoprazole 30 mg ODTablet G-TUBE SCH (08:30)
[2016-08-02 08:46] LABS: BASOPHILS % (AUTO) 0.6 % (0-3); EOSINOPHILS % (AUTO) 1.9 % (0-5); MONOCYTES % (AUTO) 7.9 % (4-12); Mean Corpuscular Hemoglobin 28.5 pg (27.0-35.0); NEUTROPHILS % (AUTO) 69.3 % (40-74); Platelet Count 313 bil/L (150-400)
[2016-08-02] MEDS: Pantoprazole 4 mg/mL 10 mL Inj IVPUSH SCH ×2 (09:25→16:59)
[2016-08-02 09:30] LABS: TROPONIN T 0.039 ug/L (0.0-0.011)
--- NOTE | 2016-08-02 11:55 | DRSVH ---
Located Within [facility] [address] [address] Echocardiogram Report Name: GRACIELA CERVANTES WStudy Date: Height: 72 in Hospital Exam Location: [facility] Weight: 168 lb Gender: Male BSA: 2.0 m2 : 1950 Age: 65 yrs BP: 154/89 mmHg Reason For Study: ELEVATED TROPONIN Ordering Physician: HOSPITALIST SVerformed By: Laila Goldberg Referring Physician: DR. Zachary CARDENAS Interpretation Summary Left ventricular wall thickness is moderately increased. The ejection fraction is estimated to be 60-65%. Left ventricular wall motion is normal. Compared to the prior exam, left ventricular function is significantly improved. The right ventricle grossly appears normal in size with probable normal systolic function. There is no significant valvular heart disease. Left Ventricle: The left ventricular cavity is small. Left ventricular wall thickness is moderately increased. The ejection fraction is estimated to be 60-65%. Compared to the prior exam, left ventricular function is significantly improved. Left ventricular wall motion is normal. Spectral Doppler of the mitral valve is reversed, with an E/A wave ratio < 1.0. Right Ventricle: The right ventricle grossly appears normal in size with probable normal systolic function. Atria: Both atria are normal in size. There is no Doppler evidence for an atrial septal defect. Mitral Valve: The mitral valve leaflets appear normal. There is no evidence of stenosis, fluttering, or prolapse. There is no mitral regurgitation noted. Aortic Valve: The aortic valve is trileaflet. The aortic valve opens well. The aortic valve is slightly calcified. No aortic regurgitation is present. Tricuspid Valve: The tricuspid valve leaflets are thin and pliable. There is a trace or physiologic amount of tricuspid regurgitation. Pulmonary artery pressures cannot be estimated because of the lack of a measurable TR jet velocity. Pulmonic Valve: The pulmonic valve is not well seen, but is grossly normal. There is no pulmonic valvular regurgitation. Great Vessels: The aortic root is normal size. The dimensions of the ascending aorta are normal. The pulmonary artery is normal size. The IVC is of normal diameter and collapses greater than 50% with a sniff. This suggests a low right atrial pressure of 3 mm Hg. Pericardium/ Pleura There is no pericardial effusion. There is no pleural effusion. MMode/2D Measurements & Calculations LVIDd: 3.7 cm LA dimension: 3.4 cm RA long axis LVOT diam: 2.5 cm LVIDs: 2.3 cm AoV Opening FS: 38.6 % LA A2 area: 16.5 cm RA area EPSS: 0.54 cm LA A4 area: 22.6 cm Ao root diam IVSd: 1.4 cm LA length (vol) : 10.7 cm LVPWd: 1.5 cm RA vol Aortic Jxn: 3.0 cm LA vol: 50.1 ml : 18.6 ml asc Aorta Diam LA vol index RA : 9.4 mm/ Ao Arch Diam (Prox RVDd major Trans): 2.8 cm IVC diam: 1.7 cm : 6.7 cm LV ponce. diameter/BSA LV sys. diameter/BSA RVD2 (mid) (cm/m^2): 1.9 (cm/m^2): 1.2 : 2.3 cm Doppler Measurements & Calculations Ao V2 max MV E max mitul MV E/A: 0.54 PA V2 max: 81.3 cm/sec : 114.5 cm/sec : 53.0 cm/sec Med Peak E' Mitul PA mean P.5 mmHg Ao max PG MV A max mitul PA Accel Time : 5.2 mmHg : 98.0 cm/sec E/E' med: 11.1 : 0.14 sec Ao mean PG Lat Peak E' Mitul LVOT Max Mitul E/E' lat: 5.9 : 88.3 cm/sec E/e' average: 8.5 DAMION(I,D): 3.1 cm Pulm A Revs Dur sev ratio Ao V2 mean LV V1 max PG PA V2 mean DAMION indexed to BSA : 86.2 cm/sec : 58.1 cm/sec (cm^2/m^2): 1.6 Ao V2 VTI: 23.6 cmLV V1 VTI : 15.3 cm DAMION(V,D): 3.7 cm2 Electronically signed by: Lyndon Ortiz on Reading Physician:08/02/2016 11:54 AM
--- NOTE | 2016-08-02 14:16 | PCM.DIMED ---
Trinity Hayes DO 08/02/16 1414: Discharge Instructions Date of Service August 03, 2016 Dates of Hospitalization Aug 01, 2016 at 18:43 Discharge Diagnosis Discharge Diagnosis 1. Acute Elevated troponin 2. Possible GI bleeding 3. Hypertension 4. Type 2 diabetes 5. Rectal cancer with new metastasis 6. Chronic indwelling catheter with hematuria 7. Malnutrition on tube feeding 8. Multiple Skin Ulcers. Medication Instructions Continue to take your medications as previously prescribed. You may need to increase iron dosing if you continue to bleed. Diet Heart Healthy Activity No restrictions Call your provider Fever or Chills, Shortness of breath, Chest pain, Vomitting, Excessive diarrhea , Weakness (unilateral) Patient Instructions You likely have a new colon cancer with evidence of new metastasis. There was some concern that you were having a heart attack however upon continued observation, testing with labs and echocardiogram this is unlikely. Follow-up plan Follow-up with your provider at [facility]. You will also need to see Dr. Esteban to follow-up with your cancer treatments and possible progression of cancer. Follow-up Provider: Rey Nazario MD Provider: Elsa Easley MD Follow-up in: 1 week Mike Rico MD 08/03/16 1707: Discharge Instructions Attending's Statement The patient was seen and examined independently on 08/03/2016 and case discussed with Dr. Hayes , I agree with the discharge instructions as outlined in the note above. Trinity Hayes DO Aug 02, 2016 14:14 Mike Rico MD Aug 03, 2016 17:07
--- NOTE | 2016-08-02 19:51 | PCM.PNMED ---
Subjective Date of Service Aug 02, 2016 Subjective Patient is not answering questions fully or completely. He does know that he had his toe amputated recently and described the doctor however does not know her name or where it was done. He does not endorse nausea, vomiting, or headache. He has mild abdominal pain. Exam Vital Signs Vital Sign - Last Date Time Temp Pulse Resp B/P Pulse Ox O2 Delivery O2 Flow Rate FiO2 08/02/16 05:18 97 08/02/16 04:39 36.6 18 154/89 96 Room Air Intake and Output 08/01/16 08/01/16 08/02/16 Cumulative From/Thru 15:00 23:00 07:00 08/01/16 21:10 - 08/02/16 06:30 Intake Total 746 ml 746 ml Output Total 1000 ml 1000 ml Balance -254 ml -254 ml Intake Oral 0 ml 0 ml IV Total 746 ml 746 ml Output Urine Total 1000 ml 1000 ml Exam General: No acute distress, well-developed, well-nourished, appropriately interactive HEENT: Normocephalic, atraumatic. External ears without defect. Pupils equal, round, and reactive to light and accommodation. Anicteric sclerae, moist conjunctivae, and no lid lag. Oropharynx free of erythema and cobble stoning with moist mucosa. Neck: Supple with full range of motion. No jugular venous distension. No lymphadenopathy or thyromegaly. Cardiovascular: Regular rate and rhythm with no murmurs, rubs, or gallops appreciated Pulmonary: Clear to auscultation bilaterally with no crackles, wheezes, or rhonchi. Normal respiratory effort with no use of accessory muscles. Abdomen: G-tube in place without evidence of infection at insertion site. Bowel tones present. Soft, nontender, nondistended. No hepatosplenomegaly or masses appreciated. Extremities: Right fifth toe internally rotated over fourth toe, left fifth toe amputated with healed scar. No clubbing, cyanosis, edema, or lymphadenopathy appreciated. Skin: Normal temperature, turgor, and texture; no rash, ulcers, or subcutaneous nodules appreciated. Neurological: Cranial nerves grossly intact. Normal muscle strength, tone, and bulk. Does not ambulate independently Psychiatric: Not answering questions completely, mumbled speech. Alert and oriented to person, place, and time. IVs and Medications Medications Reviewed: Medications were reviewed in detail Lab and Diagnostics Result Diagram: 08/01/16 1548 08/01/16 1548 X-Rays, CTs and MRIs CT ABDOMEN AND PELVIS WITH CONTRAST 08/01 IMPRESSION: 1. New medial segment left hepatic lobe metastasis. 2. No change in calcified splenic hilar focus, possibly indicating a healed metastasis versus splenic artery aneurysm. 3. No change in mild right lung base pneumonia. Dictated by: Stew Adrian M.D. on 08/01/2016 at 17:24 Approved by: Stew Adrian M.D. on 08/01/2016 at 17:26 Cardiac Echo Impressions Echocardiogram Report Interpretation Summary Left ventricular wall thickness is moderately increased. The ejection fraction is estimated to be 60-65%. Left ventricular wall motion is normal. Compared to the prior exam, left ventricular function is significantly improved. The right ventricle grossly appears normal in size with probable normal systolic function. There is no significant valvular heart disease. Assessment & Plan Javier Joseph is a 65 year old male with history of rectal cancer, Atherosclerosis disease with Peripheral vascular disease and TIA, type II diabetes mellitus and hypertension presents to [facility] emergency department [facility] EMS [facility] complaining of hematochezia 1. Acute Elevated troponin. Present on admission, stable No EKG changes or anginal complaints at this time. Likely represent demand ischemia rather than Non ST elevation [place] - Troponin remained stable between 0.044 and 0.039 - No anticoagulations at this time due to history of intracranial bleeding - Echocardiogram without wall motion abnormalities as above 2. GI bleeding. Present on admission -patient reportedly had BRBPR at [facility],verified from RN at [facility] No continued bleeding at this time, Previous history of colon cancer, and GERD. Etiology most likely recurrence of untreated colon cancer but could be Wendy Ospina syndrome or Peptic ulcer disease - Protonix 40 mg daily - No continued antiplatelet therapy - consider Gastroenterology consult if bleeding persists - recommend colonoscopy as outpatient if desired,sister states he is not interested in cancer treatment at this point given multiple recent events/ complications including ICH 3. Hypertension, present on admission, presumed stable - continuing Metoprolol and Lisinopril via G tube 4. Type 2 diabetes - Continue home dose Lantus 24 units daily at bedtime - Low dose correctional insulin Lispro 5. Rectal cancer with metastasis - CT abdomen showed new medial segment left hepatic lobe metastasis. - Followed by Dr. Esteban outpatient - I spoke with sister Merlene today who states that patient opted to not continue treatment for colon cancer. Hospice was discussed and can be initiated outpatient. 6. Chronic indwelling catheter with hematuria No evidence of urinary tract infection - continue catheter care with frequent changes 7 Malnutrition on tube feeding - holding tube feeding until bleeding is ruled out 8 Multiple Skin Ulcers. Present on admission Patient bed bound - Patient has 2 stage II pressure ulcers. - Assessed by wound care with placement of Mepilex dressings that can be changed every 48 hours or as needed - Acetaminophen as needed for mild pain/fever/headache - Bowel regimen as needed - Antiemetic as needed Patient admitted under inpatient status with expected length of stay > 2 midnights for severity of present symptoms, complexities of treatment plan and risk for adverse event. He will likely discharge tomorrow back to [facility]. . Pain Evaluation: Adequate Pain Control GI Prophylaxis: Proton Pump Inhibitor VTE Prophylaxis: SCDs, Other (chemical prophylaxis held due to GI bleed) Resuscitation Status: DNR/DNI:Do Not Resuscitate/Intubate Attending Statement The patient was seen and examined independently on 08/02/2016 and case discussed with Dr. Hayes , I agree with the history, exam and plan as outlined in the note above. Trinity Hayes DO Aug 02, 2016 07:47 Mike Rico MD Aug 02, 2016 23:45
[2016-08-03] MEDS: 0.9% Sodium Chloride 1,000 ML IV SCH ×2 (00:58→10:57)
[2016-08-03 02:21] VITALS: BP 138/78; PULSE 70; RESP 18; O2SAT 97
[2016-08-03 05:08] VITALS: BP 150/77; PULSE 90; RESP 17; O2SAT 98
[2016-08-03] MEDS: Nystatin 100,000 Unit/mL 5 mL Suspension PO SCH ×2 (05:10→11:10)
[2016-08-03 05:38] LABS: BASOPHILS % (AUTO) 0.6 % (0-3); EOSINOPHILS % (AUTO) 2.8 % (0-5); MONOCYTES % (AUTO) 8.9 % (4-12); Mean Corpuscular Hemoglobin 28.6 pg (27.0-35.0); Mean Corpuscular Volume 84.4 fL (81-100); NEUTROPHILS % (AUTO) 61.5 % (40-74); Platelet Count 298 bil/L (150-400)
[2016-08-03 05:49] VITALS: PULSE 85
[2016-08-03] MEDS ORDERED: Glucose 40% Oral Gel 15 Gm Tube PO PRN (08:45)
[2016-08-03] MEDS: Insulin LISPRO 300 Unit/3 mL Inj SUBQ SCH ×2 (08:50→11:24)
[2016-08-03 09:12] VITALS: PULSE 89
[2016-08-03] MEDS: Pantoprazole 4 mg/mL 10 mL Inj IVPUSH SCH (09:13)
[2016-08-03 09:25] VITALS: BP 162/82; PULSE 91; RESP 17; O2SAT 96
[2016-08-03] MEDS ORDERED: Insulin LISPRO 300 Unit/3 mL Inj SUBQ SCH (12:00)
[2016-08-03 13:12] VITALS: BP 127/74; PULSE 92; RESP 18; O2SAT 95
--- NOTE | 2016-08-03 16:13 | PCM.DC.MED ---
Discharge Summary Date of Service Aug 03, 2016 Dates of Hospitalization Date of Hospital Admission Aug 01, 2016 at 18:43 Date of Discharge: Aug 03, 2016 Providers: Admitting Physician: Catalino Gasca MD Primary Care Physician: Allen Weinstein MD Attending Physician: Catalino Gasca MD Diagnosis at Time of Discharge Diagnosis at Time of Discharge 1. Acute Elevated troponin 2. Possible GI bleeding 3. Hypertension 4. Type 2 diabetes 5. Rectal cancer with new metastasis 6. Chronic indwelling catheter with hematuria 7. Malnutrition on tube feeding 8. Multiple Skin Ulcers. Procedures XRay, CTs & MRIs CT ABDOMEN AND PELVIS WITH CONTRAST 08/01 IMPRESSION: 1. New medial segment left hepatic lobe metastasis. 2. No change in calcified splenic hilar focus, possibly indicating a healed metastasis versus splenic artery aneurysm. 3. No change in mild right lung base pneumonia. Dictated by: Stew Adrian M.D. on 08/01/2016 at 17:24 Approved by: Stew Adrian M.D. on 08/01/2016 at 17:26 Cardiac Echo Impression Echocardiogram Report Interpretation Summary Left ventricular wall thickness is moderately increased. The ejection fraction is estimated to be 60-65%. Left ventricular wall motion is normal. Compared to the prior exam, left ventricular function is significantly improved. The right ventricle grossly appears normal in size with probable normal systolic function. There is no significant valvular heart disease. Brief History History of present illness on admission by Dr. Gasca: Javier Joseph is a 65 year old male with history of rectal cancer (in remission), Atherosclerosis disease with Peripheral vascular disease and TIA, type II diabetes mellitus and hypertension presents to [facility] emergency department via EMS from [facility] ([place]) complaining of Blood in his stool Patient is a alf resident at a half-way, they reported hematochezia first appeared this morning. Associated symptoms include hematuria and left sided abdominal pain. He denies any vomiting or fever. Due to patient being a poor historian it is unclear if he had any melena or hematemesis. Unclear if patient took any NSAID Patient was seen at [facility] on 06/15 for decreased LOC and CT revealed an intracranial hemorrhage. He was sent to [facility] in stable condition. Patient was sent to live at [facility] in [place] after being discharged from [facility]. History of rectal cancer with metastasis Case discussed with Dr Mera, no active signs of bleeding with stable Hgb. Elevated troponin, no EKG changes or chest pain. Request to admit to trend troponin and monitor for possible GI bleeding Hospital Course Javire Joseph is a 65 year old male with history of rectal cancer, Atherosclerosis disease with Peripheral vascular disease and TIA, type II diabetes mellitus and hypertension presents to [facility] emergency department via EMS from [facility] ([place]) complaining of hematochezia 1. GI bleeding. Present on admission - Patient reportedly had BRBPR at [facility],verified from RN at [facility] and again witnessed on the day of discharge. - Previous history of colon cancer. Etiology is most likely recurrence of untreated colon cancer. CT abdomen performed in the emergency department shows new metastasis of the liver - Protonix 40 mg daily - No continued antiplatelet therapy - Consider Gastroenterology consult if bleeding persists - recommend colonoscopy as outpatient if desired,sister states he is not interested in cancer treatment at this point given multiple recent events/ complications including ICH - Case discussed with Dr. Marin who states therapies for decreasing bleeding are limited, one possibility would be to use a colonoscope and inject epinephrine into the cancerous tissue to help slow down progression, this option was presented to the patient, he states he needs to think about it. 2. Acute Elevated troponin. Present on admission, stable No EKG changes or anginal complaints at this time. Likely represent demand ischemia rather than Non ST elevation [place] - Troponin remained stable between 0.044 and 0.039 - No anticoagulations at this time due to history of intracranial bleeding and active GI bleed - Echocardiogram without wall motion abnormalities as above 3. Hypertension, present on admission, presumed stable - continue Metoprolol and Lisinopril via G tube 4. Type 2 diabetes - Continue home dose Lantus 24 units daily at bedtime - Low dose correctional insulin Lispro 5. Rectal cancer with metastasis - CT abdomen showed new medial segment left hepatic lobe metastasis. - Followed by Dr. Esteban outpatient - I spoke with sister Merlene merino who states that patient opted to not continue treatment for colon cancer. Hospice was discussed and can be initiated outpatient. 6. Chronic indwelling catheter with hematuria No evidence of urinary tract infection - continue catheter care with frequent changes 7. Malnutrition on tube feeding - holding tube feeding until bleeding is ruled out 8. Multiple Skin Ulcers. Present on admission 9. Patient bed bound - Patient has 2 stage II pressure ulcers. - Assessed by wound care with placement of Mepilex dressings that can be changed every 48 hours or as needed I had discussion with patient at bedside and sister Merlene over the phone. Patient is very clear that he does not want to treat his cancer. He is resistant to the idea of a colonoscopy. The options of initiating hospice or continuing conservative medical management were discussed with the patient and he stated he needed to think about what he wanted to do. I encouraged him to take some time and let him know that he can change his mind even if he makes a decision. Goals of care will need to be discussed in follow-up. Exam Vital Signs (Last) Date Time Temp Pulse Resp B/P Pulse Ox O2 Delivery O2 Flow Rate FiO2 08/03/16 13:12 36.3 92 18 127/74 95 Room Air Exam General: No acute distress, well-developed, well-nourished, appropriately interactive HEENT: Normocephalic, atraumatic. External ears without defect. Pupils equal, round, and reactive to light and accommodation. Anicteric sclerae, moist conjunctivae, and no lid lag. Oropharynx free of erythema and cobble stoning with moist mucosa. Neck: Supple with full range of motion. No jugular venous distension. No lymphadenopathy or thyromegaly. Cardiovascular: Regular rate and rhythm with no murmurs, rubs, or gallops appreciated Pulmonary: Clear to auscultation bilaterally with no crackles, wheezes, or rhonchi. Normal respiratory effort with no use of accessory muscles. Abdomen: G-tube in place without evidence of infection at insertion site. Bowel tones present. Soft, nontender, nondistended. No hepatosplenomegaly or masses appreciated. Extremities: Right fifth toe internally rotated over fourth toe, left fifth toe amputated with healed scar. No clubbing, cyanosis, edema, or lymphadenopathy appreciated. Skin: Normal temperature, turgor, and texture; no rash, ulcers, or subcutaneous nodules appreciated. Neurological: Cranial nerves grossly intact. Normal muscle strength, tone, and bulk. Does not ambulate independently Psychiatric: answering questions appropriately quiet but intelligible speech. Alert and oriented to person, place, and time. Test 08/01/16 15:48 08/01/16 15:51 08/02/16 08:35 08/03/16 05:15 Prothrombin Time 12.7sec (8.1-12.5) Prothromb Time International Ratio 1.18ratio Urine Color Yellow (YELLOW) Urine Appearance Clear (CLEAR,HAZY) Urine pH 8.0 (5.0-8.0) Urine Specific [place] 1.010 (1.003-1.035) Urine Protein Tracemg/dL (NEG,TRACE) Urine Glucose (UA) 500mg/dL (NEGATIVE) Urine Ketones Negativemg/dL (NEGATIVE) Urine Occult Blood Large (NEGATIVE) Urine Nitrite Negative (NEGATIVE) Urine Bilirubin Negative (NEGATIVE) Urine Urobilinogen 4.0mg/dL (NORMAL) Urine Leukocyte Esterase Negative (NEGATIVE) Urine RBC 11-50/hpf (0-2) Urine WBC 0-5/hpf (0-5) Urine Epithelial Cells None/hpf (NONE-MOD) Urine Crystals None seen (NONE SEEN) Urine Bacteria None/hpf (NONE-FEW) Urine Hyaline Casts None/lpf (NONE) Urine Granular Casts None seen (NONE SEEN) Urine Waxy Casts None seen (NONE SEEN) Urine Red Blood Cell Casts None seen (NONE SEEN) Urine White Blood Cell Casts None seen (NONE SEEN) Urine Mucus None seen (None Seen) Urine Trichomonas None seen (NONE SEEN) Urine Yeast None (NONE SEEN) Urinalysis Comment None Urine Culture Reflexed Not indicated Troponin T 0.039ug/L (0.0-0.011) Prealbumin 22mg/dL (20-40) White Blood Count 7.9th/mm3 (3.8-10.1) Red Blood Count 3.53mil/mm3 (4.40-5.80) Hemoglobin 10.1g/dL (13.8-17.2) Hematocrit 29.8% (41.0-50.0) Mean Corpuscular Volume 84.4fL (81-100) Mean Corpuscular Hemoglobin 28.6pg (27.0-35.0) Mean Corpuscular Hemoglobin Concent 33.9% (32.0-37.0) Red Cell Distribution Width 14.9% (12.3-15.4) Platelet Count 298bil/L (150-400) Neutrophils (%) (Auto) 61.5% (40-74) Lymphocytes (%) (Auto) 24.7% (14-46) Monocytes (%) (Auto) 8.9% (4-12) Eosinophils (%) (Auto) 2.8% (0-5) Basophils (%) (Auto) 0.6% (0-3) Sodium Level 134mEq/L (134-144) Potassium Level 4.1mEq/L (3.5-5.2) Chloride Level 98mEq/L (97-108) Carbon Dioxide Level 21mmol/L (18-29) Blood Urea Nitrogen 19mg/dL (8-27) Creatinine 0.62mg/dL (0.76-1.27) Estimat Glomerular Filtration Rate 138mL/min (>59) Glucose Level 302mg/dL (60-99) Calcium Level 8.4mg/dL (8.5-10.1) Total Bilirubin 0.3mg/dL (0.0-1.2) Aspartate Amino Transf (AST/SGOT) 32U/L (0-50) Alanine Aminotransferase (ALT/SGPT) 58U/L (0-44) Alkaline Phosphatase 133U/L (25-160) Total Protein 5.8g/dL (6.4-8.4) Albumin 2.9g/dL (3.4-5.0) Discharge Medications Discharge Medications Amlodipine (Amlodipine) 10 Mg Tablet 10 MG G-TUBE DAILY (Reported) Ammonium Lactate (Ammonium Lactate) 140 Gm Cream..g. 1 APPLIC EXT BID (Reported ) Ascorbate Calcium (Vitamin C) 500 Mg Tablet 500 MG PO DAILY (Reported) Atorvastatin Calcium (Atorvastatin Calcium) 40 Mg Tablet 40 MG PO HS (Reported) Carvedilol (Carvedilol) 25 Mg Tablet 25 MG G-TUBE BID (Reported) Chlorthalidone (Chlorthalidone) 25 Mg Tablet 12.5 MG G-TUBE DAILY (Reported) Doxazosin (Cardura) 4 Mg Tablet 4 MG G-TUBE HS (Reported) Ferrous Sulfate (Ferrous Sulfate) 325 Mg Tablet 325 MG PO DAILY Prescribed by: SERINA HAMPTON MD Gabapentin Oral Soln (Gabapentin Oral Soln) 250 Mg/5 Ml Solution 300 MG G-TUBE TID (Reported) Insulin Glargine (Lantus U100 Insulin Vial) 100 Unit/Ml Vial 24 UNITS SUBQ HS ( Reported) Insulin Lispro (HumaLOG U100 Insulin Pen) 100 Unit/1 Ml Insuln.pen 9 UNIT SUBQ ACHS (Reported) Blood Sugar Lispro Correction <151 0 units 151-175 1 unit 176-200 2 units 201-225 3 units 226-250 4 units 251-275 5 units 276-300 6 units 301-325 7 units 326-350 8 units 351-375 9 units 376-400 10 units >400 12 units Check blood sugars before meals and at bedtime. Use correction factor only before meals. Insulin Lispro (HumaLOG U100 Insulin Pen) 100 Unit/1 Ml Insuln.pen 0-6 UNIT SUBQ ACHS (Reported) Blood Sugar Lispro Correction <151 0 units 151-175 1 unit 176-200 2 units 201-225 3 units 226-250 4 units 251-275 5 units 276-300 6 units 301-325 7 units 326-350 8 units 351-375 9 units 376-400 10 units >400 12 units Check blood sugars before meals and at bedtime. Use correction factor only before meals. Lactose-Free Food/Fiber (Jevity 1.5 Oscar Liquid) 1,000 Ml Liquid 80 ML PO DIRECTED (Reported) Lansoprazole DR (Prevacid) 30 Mg Capsule 15 MG G-TUBE DAILY (Reported) Lisinopril (Lisinopril) 20 Mg Tablet 20 MG G-TUBE BID (Reported) Multivitamin with Minerals (Totalday Multiple) 1 Each Tablet.er 1 TAB G-TUBE DAILY (Reported) Nystatin (Nystatin) 100,000 Unit/1 Ml Oral.susp 500,000 UNIT PO Q6H (Reported) Sodium Chloride 0.9% (Sodium Chloride) 50 Ml Iv.soln 200 ML G-TUBE Q6H (Reported ) Tamsulosin (Flomax) 0.4 Mg Capsule 0.4 MG PO DAILY (Reported) Water Bacteriostatic (Water) 30 Ml Vial 200 ML G-TUBE QID (Reported) As needed Acetaminophen (Acetaminophen) 325 Mg Tablet 650 MG G-TUBE Q6H PRN PRN For Pain ( Reported) Albuterol Neb Soln (Albuterol Neb Soln) 2.5 Mg/3 Ml Vial.neb 2.5 MG INHALATION Q2H PRN PRN For Shortness of Breath (Reported) Bisacodyl (Dulcolax Rectal) 10 Mg Supp.rect 10 MG RC DAILY PRN PRN For Constipation (Reported) Loperamide Liquid (Loperamide Liquid) 1 Mg/5 Ml Liquid 2 MG G-TUBE Q6H PRN PRN For Diarrhea or Loose Stool (Reported) Magnesium Hydroxide (Milk of Magnesia) 400 Mg/5 Ml Oral.susp 30 ML PO DIRECTED PRN PRN For Constipation (Reported) Meclizine (Bonine) 25 Mg Tab.chew 25 MG PO TID PRN PRN For Dizziness (Reported) Na Phos,M-B/Na Phos,Di-Ba (Fleet Enema) 133 Ml Enema 133 ML RC DIRECTED PRN PRN For Constipation (Reported) Ondansetron ODT (Ondansetron ODT) 4 Mg Tab.rapdis 4-8 MG G-TUBE TID PRN PRN For Nausea (Reported) Oxycodone (Roxicodone) 5 Mg Tablet 5-10 MG G-TUBE Q3H PRN PRN For Pain (Reported ) Sennosides (Senna) 8.8 Mg/5 Ml Syrup 17.6 MG G-TUBE BID PRN PRN For Constipation (Reported) Additional med instructions Continue to take your medications as previously prescribed. Discontinue Plavix You may need to increase iron dosing if you continue to bleed. Followup Plan Disposition: Discharged to [facility] Follow-up plan [facility]. You will also need to see Dr. Esteban to follow-up with your cancer treatments and possible progression of cancer. Discharge Diet: Heart Healthy Discharge Activity: No restrictions Patient Instructions You likely have a new colon cancer with evidence of new metastasis. There was some concern that you were having a heart attack however upon continued observation, testing with labs and echocardiogram this is unlikely. Follow-up Provider: Rey Nazario MD Follow-up with PCP in: Other (if desired) Provider: Elsa Easley MD Follow-up in: 1 week Attending Statement The patient was seen and examined independently on 08/03/2016 and case discussed with Dr. Hayes , I agree with the discharge summary as outlined in the note above. copies to: Rey Nazario MD; Elsa Easley MD, Erika R DO Aug 03, 2016 16:13 Mike Rico MD Aug 03, 2016 21:08
== END 2016-08-03 13:49 ==
LOC: SED 15:22 → MPC 18:43
PROVIDERS: ADMIT Hospitalist; ATTEND Hospitalist
DX: R79.89 Other specified abnormal findings of blood chemistry (principal); K92.1 Melena; E11.40 Type 2 diabetes mellitus with diabetic neuropathy, unspecified; K21.9 Gastro-esophageal reflux disease without esophagitis; K44.9 Diaphragmatic hernia without obstruction or gangrene; I10 Essential (primary) hypertension; Z85.048 Personal history of other malignant neoplasm of rectum, rectosigmoid junction, and anus; C78.89 Secondary malignant neoplasm of other digestive organs; C78.7 Secondary malignant neoplasm of liver and intrahepatic bile duct; I69.398 Other sequelae of cerebral infarction; H53.8 Other visual disturbances; R42 Dizziness and giddiness; Z66 Do not resuscitate; Z79.82 Long term (current) use of aspirin; Z79.4 Long term (current) use of insulin; Z79.02 Long term (current) use of antithrombotics/antiplatelets; R31.9 Hematuria, unspecified; E46 Unspecified protein-calorie malnutrition; Z68.22 Body mass index [BMI] 22.0-22.9, adult; L89.152 Pressure ulcer of sacral region, stage 2
CPT/HCPCS: 36415; 74177; 80053; 81000; 82040; 82274; 84134; 84484; 85025; 85610; 86850; 93005; 96374; 96376; 97602; 99285; C8929; G0378; J1815; J7030; Q9967